=== PATIENT | female | born 1965 | race Caucasian/White ===

== ENCOUNTER 2020-02-02 13:32 | Observation (INO) | payer OTHER ==
[~2020-02-02] VITALS: Ht 157.4 cm; Wt 47.4 kg
[2020-02-02 13:35] VITALS: BP 124/87
[2020-02-02 13:57] LABS: BASO % 0.9 % (0.0-1.0); EOS # 0.1 10*3/uL (0.0-0.4); EOS % 2.8 % (1.0-4.0); HEMATOCRIT 38.6 % (37.0-47.0); HEMOGLOBIN 13.1 g/dl (12.0-16.0); LYMPH # 1.9 10*3/uL (1.3-4.4); MEAN CELL VOLUME 97.7 fl (81.0-99.0); MEAN CORPUSCULAR HGB 33.2 pg (27.0-31.0); MEAN CORPUSCULAR HGB CONC 33.9 g/dl (33.0-37.0); MEAN PLATELET VOLUME 8.7 fl (9.6-12.3); MONO # 0.3 10*3/uL (0.1-1.0); NEUT % 46.1 % (47.0-73.0); PLATELET COUNT AUTOMATED 217 10*3/uL (130-400); RED BLOOD COUNT 3.95 10*6/uL (4.10-5.10); RED CELL DISTRI WIDTH 11.8 % (0-14.5); WHITE BLOOD COUNT 4.3 10*3/uL (4.8-10.8)
[2020-02-02 14:13] LABS: ACT PARTIAL THROMBO TIME 24.3 SECONDS (20.0-32.1)
[2020-02-02 14:14] LABS: ALBUMIN 4.1 gm/dl (3.1-4.5); ALKALINE PHOSPHATASE 69 U/L (45-117); BUN 20 mg/dl (7-24); CHLORIDE 106 mmol/L (98-107); CREATININE 0.83 mg/dL (0.55-1.02); POTASSIUM 3.5 mmol/L (3.5-5.1); SGOT/AST 24 IU/L (3-35); SGPT/ALT 36 U/L (12-78); SODIUM 140 mmol/L (136-145); TOTAL PROTEIN 7.4 gm/dL (6.4-8.2)
[2020-02-02 14:15] LABS: LIPASE 269 U/L (73-393)
[2020-02-02 14:22] LABS: TROPONIN I < 0.015 ng/ml (<0.045)
[2020-02-02 17:00] VITALS: BP 118/68
[2020-02-02 17:30] VITALS: BP 128/74
[2020-02-02 18:30] VITALS: BP 127/68
[2020-02-02 20:00] VITALS: BP 123/69
[2020-02-02] MEDS ORDERED: ZOLOFT50 MG PO (20:26)
[2020-02-02] MEDS ORDERED: LIPITOR10 MG PO (20:26)
[2020-02-02] MEDS ORDERED: DOXYCYCLINE100 MG PO (20:27)
[2020-02-03] VITALS: BP 119/66
[2020-02-03 06:05] LABS: BASO % 0.8 % (0.0-1.0); EOS # 0.2 10*3/uL (0.0-0.4); EOS % 4.5 % (1.0-4.0); HEMATOCRIT 37.7 % (37.0-47.0); HEMOGLOBIN 12.8 g/dl (12.0-16.0); LYMPH # 1.5 10*3/uL (1.3-4.4); LYMPH % 29.6 % (27.0-41.0); MEAN CELL VOLUME 96.2 fl (81.0-99.0); MEAN CORPUSCULAR HGB 32.7 pg (27.0-31.0); MEAN PLATELET VOLUME 9.1 fl (9.6-12.3); MONO # 0.4 10*3/uL (0.1-1.0); MONO % 7.1 % (3.0-9.0); NEUT % 57.8 % (47.0-73.0); PLATELET COUNT AUTOMATED 218 10*3/uL (130-400); RED BLOOD COUNT 3.92 10*6/uL (4.10-5.10); RED CELL DISTRI WIDTH 11.8 % (0-14.5); WHITE BLOOD COUNT 5.1 10*3/uL (4.8-10.8)
[2020-02-03 06:21] LABS: ALBUMIN 3.8 gm/dl (3.1-4.5); BUN 20 mg/dl (7-24); CHLORIDE 108 mmol/L (98-107); CHOLESTEROL 144 mg/dL (<200); POTASSIUM 3.9 mmol/L (3.5-5.1); SGOT/AST 19 IU/L (3-35); SGPT/ALT 32 U/L (12-78); SODIUM 141 mmol/L (136-145)
[2020-02-03 06:23] LABS: ALKALINE PHOSPHATASE 56 U/L (45-117); HDL CHOLESTEROL 81 mg/dl (40-60); LDL CHOLESTEROL 41 mg/dL (9-159); TOTAL PROTEIN 6.8 gm/dL (6.4-8.2); TRIGLYCERIDES 111 mg/dl (<150); VLDL CHOLESTEROL 22 mg/dL (6-40)
[2020-02-03 08:00] VITALS: BP 104/67
[2020-02-03] MEDS ORDERED: VENLAFAXINE HYD75 M3 PO (08:07)
[2020-02-03] MEDS ORDERED: OMEPRAZOLE40 MG PO (09:06)
== END 2020-02-03 09:55 | disposition home or self-care (01) ==
LOC: ED 13:32 → EDHOLD 19:14 → 4E 19:14
PROVIDERS: Emergency Medicine; Student in an Organized Health Care Education/Training Program; ADMIT Family Medicine
DX: R07.89 Other chest pain (principal); E78.5 Hyperlipidemia, unspecified; K21.9 Gastro-esophageal reflux disease without esophagitis; M19.90 Unspecified osteoarthritis, unspecified site; I47.1 Supraventricular tachycardia; D72.819 Decreased white blood cell count, unspecified; J32.9 Chronic sinusitis, unspecified; R73.9 Hyperglycemia, unspecified